=== PATIENT | male | born 1955 | race Two or more races ===

== ENCOUNTER 2017-05-28 14:47 | Inpatient (IN) | payer BC, OTHER ==
[2017-05-27 20:57] VITALS: BP 120/86
[~2017-05-28] VITALS: Ht 152.4 cm; Wt 96.6 kg
[2017-05-28 15:28] LABS: Urine Bilirubin Negative (Negative); Urine Blood Negative /uL (Negative); Urine Color Yellow (Yellow); Urine Glucose Normal (Normal); Urine Ketone 1+ (Negative); Urine Mucus FEW (None Seen); Urine Nitrite Negative (Negative); Urine RBC 1 /hpf (0 - 3); Urine Urobilinogen Normal (Negative); Urine pH 5.5 (5.0-8.0)
[2017-05-28 15:51] LABS: Basophils # (auto) 0 uL; Basophils % (auto) 0.1 % (0.0-2.0); Eosinophils # (auto) 0 uL; Hematocrit 50.8 % (41.0-53.0); Hemoglobin 17.2 g/dL (13.5-17.5); Lymphocytes # (auto) 0.8 uL; Lymphocytes % (auto) 7.9 % (10.0-50.0); Mean Corpuscular Hemoglobin 32.9 pg (28.0-32.0); Mean Corpuscular Hgb Conc. 33.9 g/dL (32.0-36.0); Mean Corpuscular Volume 96.9 fL (80.0-100.0); Mean Platelet Volume 7.6 fL (6.9-10.8); Monocytes # (auto) 0.9 uL; Monocytes % (auto) 8.3 % (0.0-12.0); Neutrophils # (auto) 8.7 uL; Neutrophils % (auto) 83.7 % (37.0-80.0); Platelet Count (auto) 206 10^3/uL (140-450); Red Cell Distribution Width 14.5 % (11.8-14.3); White Blood Cell 10.5 10^3/uL (4.4-10.8)
[2017-05-28 16:09] LABS: Albumin 4.2 g/dL (3.4-5.0); Alkaline Phosphatase 62 U/L (45-117); Anion Gap 6 (5-15); Aspartate Aminotransferase 23 U/L (15-37); BUN/Creatinine Ratio 12.7; Bilirubin, Total 0.8 mg/dL (0.2-1.0); Blood Urea Nitrogen 21 mg/dL (7-18); Calcium 9.1 mg/dL (8.5-10.1); Carbon Dioxide 29 mmol/L (21-32); Chloride 105 mmol/L (98-107); GFR African American 55 mL/min; GFR Non-African American 45 mL/min; Glucose 202 mg/dL (74-106); Magnesium 2.5 mg/dL (1.6-2.6); Potassium 5.3 mmol/L (3.5-5.1); Sodium 140 mmol/L (136-145); Total Protein 7.8 g/dL (6.4-8.2)
[2017-05-28] MEDS ORDERED: METOCLOPRAMIDE HCL 5MG/ml INJ 2ml VIAL IV ONE (17:15)
[2017-05-28] MEDS ORDERED: KETOROLAC TROMETH 30 MG/ML 1ML VIAL IV ONE (17:15)
[2017-05-28] MEDS ORDERED: TAMSULOSIN HYDROCHLORIDE 0.4 MG CAP PO ONE (17:15)
[2017-05-28] MEDS ORDERED: DEXTROSE (50%) 50ML SYRG IV PRN (19:00)
[2017-05-28] MEDS ORDERED: cefTRIAXone 1GM/50ML D5W 50 ML IV ONE (19:00)
[2017-05-28] MEDS ORDERED: NITROGLYCERIN 0.4 MG SL TAB SL PRN (19:00)
[2017-05-28] MEDS ORDERED: PROMETHAZINE HCL 25 MG/ML 1ML IV PRN (19:00)
[2017-05-28] MEDS ORDERED: TEMAZEPAM 15 MG CAP PO PRN (19:00)
[2017-05-28] MEDS ORDERED: SODIUM POLYSTYRENE SULF 15GM/60ML SUSP PO ONE (19:00)
[2017-05-28] MEDS ORDERED: ACETAMINOPHEN 500 MG TAB PO PRN (19:00)
[2017-05-28] MEDS ORDERED: LORazepam 0.5 MG TAB PO PRN (19:00)
[2017-05-28] MEDS ORDERED: MORPHINE SULF INJ 2 MG/ML SYRINGE 1ML IV PRN ×2 (19:00)
[2017-05-28 19:32] LABS: INR 1.04 (0.9-1.15); Partial Thromboplastin Time 26.8 sec (22.64-33.71); Prothrombin Time 11.3 sec (9.37-12.3)
[2017-05-28] MEDS: SODIUM CHLORIDE 0.9% 1,000 ML IV SCH (20:02)
[2017-05-28] MEDS: FAMOTIDINE (10MG/ML) 2ML VL IV SCH (20:05)
[2017-05-28 20:57] VITALS: BP 120/96
[2017-05-28] MEDS: ACCU-CHEK COMFORT CURVE STRIP VI SCH (22:31)
[2017-05-28] MEDS: InsuLIN REG 1unit/0.01ml Soln (100units/ml) SC SCH (22:31)
[2017-05-28] MEDS: HYDROcodone-ACET 5/325MG TAB PO PRN (22:33)
[2017-05-29 04:40] VITALS: BP 110/56
[2017-05-29] MEDS: SODIUM CHLORIDE 0.9% 1,000 ML IV SCH ×2 (04:40→14:51)
[2017-05-29 06:10] LABS: Basophils # (auto) 0 uL; Basophils % (auto) 0.2 % (0.0-2.0); Eosinophils # (auto) 0 uL; Eosinophils % (auto) 0.2 % (0.0-7.0); Hematocrit 43.7 % (41.0-53.0); Lymphocytes # (auto) 1.8 uL; Lymphocytes % (auto) 20.8 % (10.0-50.0); Mean Corpuscular Hgb Conc. 34.3 g/dL (32.0-36.0); Mean Corpuscular Volume 96.1 fL (80.0-100.0); Monocytes # (auto) 1.1 uL; Monocytes % (auto) 13.2 % (0.0-12.0); Neutrophils # (auto) 5.6 uL; Neutrophils % (auto) 65.6 % (37.0-80.0); Nucleated Red Blood Cells % 0.1 %; Platelet Count (auto) 175 10^3/uL (140-450); Red Cell Distribution Width 14.5 % (11.8-14.3); White Blood Cell 8.6 10^3/uL (4.4-10.8)
[2017-05-29] MEDS: ACCU-CHEK COMFORT CURVE STRIP VI SCH ×4 (06:24→21:44)
[2017-05-29] MEDS: InsuLIN REG 1unit/0.01ml Soln (100units/ml) SC SCH ×4 (06:25→22:00)
[2017-05-29 06:45] LABS: Albumin 3.2 g/dL (3.4-5.0); BUN/Creatinine Ratio 12.6; Bilirubin, Total 0.7 mg/dL (0.2-1.0); Calcium 7.9 mg/dL (8.5-10.1); Potassium 3.5 mmol/L (3.5-5.1); Total Protein 6.1 g/dL (6.4-8.2)
[2017-05-29] MEDS: FAMOTIDINE (10MG/ML) 2ML VL IV SCH ×2 (08:48→19:49)
[2017-05-29] MEDS: cefTRIAXone 1GM/50ML D5W 50 ML IV SCH (08:49)
[2017-05-29 09:00] VITALS: BP 140/61
[2017-05-29] MEDS ORDERED: LISI-646 PO (12:07)
[2017-05-29] MEDS ORDERED: ATOR20TA50 PO (12:07)
[2017-05-29] MEDS ORDERED: COLC0.6T56 PO (12:07)
[2017-05-29 13:00] VITALS: BP 134/77
[2017-05-29 17:00] VITALS: BP 143/84
[2017-05-29] MEDS: TAMSULOSIN HYDROCHLORIDE 0.4 MG CAP PO SCH (17:32)
[2017-05-29] MEDS: HYDROcodone-ACET 5/325MG TAB PO PRN (19:49)
[2017-05-29 22:00] VITALS: BP 136/83
[2017-05-30] MEDS: SODIUM CHLORIDE 0.9% 1,000 ML IV SCH ×3 (01:16→21:58)
[2017-05-30 05:00] VITALS: BP 159/85
[2017-05-30] MEDS: ACCU-CHEK COMFORT CURVE STRIP VI SCH ×4 (06:09→21:59)
[2017-05-30] MEDS: InsuLIN REG 1unit/0.01ml Soln (100units/ml) SC SCH ×4 (06:14→21:59)
[2017-05-30] MEDS: HYDROcodone-ACET 5/325MG TAB PO PRN ×3 (06:15→20:16)
[2017-05-30 06:38] LABS: Potassium 3.7 mmol/L (3.5-5.1)
[2017-05-30 06:49] LABS: BUN/Creatinine Ratio 10.7; Calcium 7.7 mg/dL (8.5-10.1)
[2017-05-30] MEDS: FAMOTIDINE (10MG/ML) 2ML VL IV SCH ×2 (08:44→20:16)
[2017-05-30] MEDS: cefTRIAXone 1GM/50ML D5W 50 ML IV SCH (08:45)
[2017-05-30 09:00] VITALS: BP 133/97
[2017-05-30 13:00] VITALS: BP_SYST 129; BP_SYST 132; BP_DIAS 72; BP_DIAS 75
[2017-05-30 17:00] VITALS: BP 151/95
[2017-05-30] MEDS: TAMSULOSIN HYDROCHLORIDE 0.4 MG CAP PO SCH (17:50)
[2017-05-30 21:35] VITALS: BP 154/87
[2017-05-31] VITALS (7 sets, daily range): BP systolic 113–159; BP diastolic 68–96
[2017-05-31] MEDS: SODIUM CHLORIDE 0.9% 1,000 ML IV SCH ×2 (06:47→16:51)
[2017-05-31] MEDS: InsuLIN REG 1unit/0.01ml Soln (100units/ml) SC SCH ×3 (07:00→16:52)
[2017-05-31] MEDS: ACCU-CHEK COMFORT CURVE STRIP VI SCH ×3 (07:01→16:51)
[2017-05-31 07:14] LABS: Calcium 7.9 mg/dL (8.5-10.1); Potassium 3.9 mmol/L (3.5-5.1)
[2017-05-31] MEDS: FAMOTIDINE (10MG/ML) 2ML VL IV SCH (08:05)
[2017-05-31] MEDS: cefTRIAXone 1GM/50ML D5W 50 ML IV SCH (08:05)
[2017-05-31] MEDS: TAMSULOSIN HYDROCHLORIDE 0.4 MG CAP PO SCH (18:35)
[2017-06-01] MEDS ORDERED: LISINOPRIL 20 MG TAB PO SCH (10:00)
== END 2017-05-31 18:35 | disposition home or self-care (01) | DRG 689 ==
LOC: ER 14:47 → OVERFLOW 14:48 → WEST WING 20:57
PROVIDERS: ADMIT Internal Medicine; ATTEND Internal Medicine
DX: N39.0 Urinary tract infection, site not specified (principal); N17.0 Acute kidney failure with tubular necrosis; E87.1 Hypo-osmolality and hyponatremia; Z68.41 Body mass index [BMI] 40.0-44.9, adult; E44.1 Mild protein-calorie malnutrition; E11.21 Type 2 diabetes mellitus with diabetic nephropathy; K76.0 Fatty (change of) liver, not elsewhere classified; N13.2 Hydronephrosis with renal and ureteral calculous obstruction; E87.5 Hyperkalemia; E78.5 Hyperlipidemia, unspecified; I12.9 Hypertensive chronic kidney disease with stage 1 through stage 4 chronic kidney disease, or unspecified chronic kidney disease; N18.2 Chronic kidney disease, stage 2 (mild); Z87.442 Personal history of urinary calculi; I25.2 Old myocardial infarction
CPT/HCPCS: 36415; 71010; 71250; 74176; 80048; 80053; 80061; 81001; 82150; 82962; 83036; 83690; 83735; 84484; 84550; 85025; 85610; 85652; 85730; 86141; 87086; 87088; 87186; 93005; 96365; 96375; J0696; J1815; J1885; J3490

== ENCOUNTER 2017-06-10 10:15 | Day surgery (SDC) | payer BC ==
[2017-06-09 16:41] LABS: Basophils # (auto) 0.1 uL; Eosinophils # (auto) 0.1 uL; Lymphocytes # (auto) 2.1 uL; Mean Platelet Volume 8.1 fL (6.9-10.8); Monocytes # (auto) 0.9 uL; Neutrophils # (auto) 4.7 uL; Red Cell Distribution Width 14.7 % (11.8-14.3)
[2017-06-09 16:43] LABS: Basophils % (auto) 0.7 % (0.0-2.0); Eosinophils % (auto) 0.9 % (0.0-7.0); Hematocrit 51.3 % (41.0-53.0); Hemoglobin 17.8 g/dL (13.5-17.5); Lymphocytes % (auto) 26.5 % (10.0-50.0); Mean Corpuscular Hemoglobin 33.3 pg (28.0-32.0); Mean Corpuscular Hgb Conc. 34.8 g/dL (32.0-36.0); Mean Corpuscular Volume 95.6 fL (80.0-100.0); Monocytes % (auto) 11.4 % (0.0-12.0); Neutrophils % (auto) 60.5 % (37.0-80.0); Nucleated Red Blood Cells % 0.8 %; Platelet Count (auto) 268 10^3/uL (140-450); White Blood Cell 7.8 10^3/uL (4.4-10.8)
[2017-06-09 16:57] LABS: Albumin 3.7 g/dL (3.4-5.0); Calcium 9.2 mg/dL (8.5-10.1); Potassium 4.3 mmol/L (3.5-5.1)
[2017-06-09 17:01] LABS: BUN/Creatinine Ratio 12.8; Bilirubin, Total 0.5 mg/dL (0.2-1.0); Total Protein 7.9 g/dL (6.4-8.2)
[2017-06-09 17:35] LABS: INR 1.01 (0.9-1.15); Partial Thromboplastin Time 30.7 sec (22.64-33.71)
[2017-06-09 23:11] LABS: Urine Bilirubin Negative (Negative); Urine Blood 2+ /uL (Negative); Urine Color Yellow (Yellow); Urine Glucose Normal (Normal); Urine Ketone Negative (Negative); Urine Mucus FEW (None Seen); Urine Nitrite Negative (Negative); Urine RBC 237 /hpf (0 - 3); Urine Urobilinogen Normal (Negative); Urine pH 5.5 (5.0-8.0)
[~2017-06-10] VITALS: Ht 165.1 cm; Wt 90.7 kg
[~2017-06-10 10:15] MED LIST: LISI-646 PO
[2017-06-10] MEDS ORDERED: ceFAZolin 1GM/50ML 50 ML IV ONE (11:41)
[2017-06-10] MEDS ORDERED: MIDAZOLAM HCL 1MG/1ML-2 ML VIAL ONE (17:24)
[2017-06-10] MEDS ORDERED: METOCLOPRAMIDE HCL 5MG/ml INJ 2ml VIAL ONE (17:25)
[2017-06-10] MEDS ORDERED: PROPOFOL 10 MG/ML 20 ML IV ONE ×2 (17:26→17:33)
[2017-06-10] MEDS ORDERED: fentaNYL CITRATE 100 MCG/2 ML VL ONE (17:37)
[2017-06-10] MEDS ORDERED: ONDANSETRON HCL 4 MG/2 ML VIAL ONE (17:39)
[2017-06-10] MEDS ORDERED: MORPHINE SULF INJ 2 MG/ML SYRINGE 1ML IV PRN (18:30)
[2017-06-10] MEDS ORDERED: KETOROLAC TROMETH 30 MG/ML 1ML VIAL IV ONE (18:30)
[2017-06-10] MEDS ORDERED: ONDANSETRON HCL 4 MG/2 ML VIAL IV ONE (18:30)
[2017-06-10 18:47] VITALS: BP 135/94
== END 2017-06-10 19:00 | disposition home or self-care (01) ==
LOC: SUR 10:15
PROVIDERS: ATTEND Urology
DX: N13.2 Hydronephrosis with renal and ureteral calculous obstruction (principal); T83.192A Other mechanical complication of indwelling ureteral stent, initial encounter; N23 Unspecified renal colic; D69.6 Thrombocytopenia, unspecified
CPT/HCPCS: 36415; 52353; 80053; 81001; 85025; 85610; 85730; 87086; J0690; J1885; J2250; J2405; J2704; J2765; J3010; 74000; 76000

== ENCOUNTER 2021-06-01 22:02 | Inpatient (IN) | payer BC, MEDICAID ==
[~2021-06-01] VITALS: Ht 167.6 cm; Wt 99.8 kg
[~2021-06-01 22:02] MED LIST changes: -LISI-646 PO; +LISI20TA28 PO
[2021-06-01] MEDS ORDERED: MORPHINE SULFATE 4 MG/ML SYR/VIAL IV ONE (22:30)
[2021-06-01] MEDS ORDERED: KETOROLAC TROMETH 30 MG/ML 1ML VIAL IV ONE (22:30)
[2021-06-01] MEDS ORDERED: ONDANSETRON HCL 4 MG/2 ML VIAL IV ONE (22:30)
[2021-06-01] MEDS ORDERED: SODIUM CHLORIDE 0.9% 1,000 ML IV ONE (22:30)
[2021-06-01 23:14] LABS: Basophils # (auto) 0 10 ^3/uL (0-0.2); Basophils % (auto) 0.3 % (0.0-2.0); Eosinophils # (auto) 0 10 ^3/uL (0-0.8); Eosinophils % (auto) 0.2 % (0.0-7.0); Hematocrit 47.4 % (41.0-53.0); Hemoglobin 16.2 g/dL (13.5-17.5); Lymphocytes # (auto) 1.6 10 ^3/uL (0.4-5.4); Mean Corpuscular Hemoglobin 32.9 pg (28.0-32.0); Mean Corpuscular Hgb Conc. 34.1 g/dL (32.0-36.0); Mean Corpuscular Volume 96.4 fL (80.0-100.0); Monocytes % (auto) 10.2 % (0.0-12.0); Neutrophils # (auto) 7.1 10 ^3/uL (1.6-8.6); Neutrophils % (auto) 73.3 % (37.0-80.0); Nucleated Red Blood Cells % 0.1 %; Red Blood Cells 4.92 10^6/uL (4.5-5.90); Red Cell Distribution Width 14.6 % (11.8-14.3); White Blood Cell 9.7 10^3/uL (4.4-10.8)
[2021-06-01 23:25] LABS: Albumin 3.5 g/dL (3.4-5.0)
[2021-06-01 23:28] LABS: BUN/Creatinine Ratio 12.1; Bilirubin, Total 0.6 mg/dL (0.2-1.0); Total Protein 7.3 g/dL (6.4-8.2)
[2021-06-01 23:33] LABS: Urine Bacteria NONE SEEN /hpf (None Seen); Urine Blood Negative /uL (Negative); Urine Mucus FEW (None Seen); Urine Specific Gravity 1.023 (1.001-1.035); Urine WBC <1 /hpf (0 - 3)
[2021-06-02] MEDS ORDERED: MORPHINE SULFATE 4 MG/ML SYR/VIAL IV ONE (03:45)
[2021-06-02] MEDS ORDERED: ONDANSETRON HCL 4 MG/2 ML VIAL IV ONE (03:45)
[2021-06-02] MEDS ORDERED: KETOROLAC TROMETH 30 MG/ML 1ML VIAL IV ONE (03:45)
[2021-06-02] MEDS ORDERED: ACETAMINOPHEN 325 MG TAB PO PRN (05:30)
[2021-06-02] MEDS ORDERED: SODIUM CHLORIDE 0.9% 1,000 ML IV SCH (05:30)
[2021-06-02] MEDS ORDERED: HYDROcodone-ACET 5/325MG TAB PO PRN (05:30)
[2021-06-02] MEDS ORDERED: ONDANSETRON HCL 4 MG/2 ML VIAL IV PRN (05:30)
[2021-06-02] MEDS ORDERED: hydrALAZINE HCL 20 MG/ML VL IV PRN (05:30)
[2021-06-02] MEDS ORDERED: DOCUSATE SOD 100 MG CAP PO PRN (05:30)
[2021-06-02] MEDS ORDERED: NITROGLYCERIN 0.4 MG SL TAB SL PRN (06:15)
[2021-06-02] MEDS ORDERED: MORPHINE SULFATE INJECTION 2 MG/ML SYRG IV PRN (06:15)
[2021-06-02 07:32] LABS: Basophils # (auto) 0 10 ^3/uL (0-0.2); Basophils % (auto) 0.3 % (0.0-2.0); Eosinophils # (auto) 0 10 ^3/uL (0-0.8); Eosinophils % (auto) 0.4 % (0.0-7.0); Hematocrit 47.7 % (41.0-53.0); Hemoglobin 16.2 g/dL (13.5-17.5); Mean Corpuscular Hemoglobin 33.2 pg (28.0-32.0); Mean Corpuscular Hgb Conc. 33.9 g/dL (32.0-36.0); Monocytes % (auto) 11.8 % (0.0-12.0); Neutrophils # (auto) 5.4 10 ^3/uL (1.6-8.6); Neutrophils % (auto) 63.5 % (37.0-80.0); Nucleated Red Blood Cells % 0.2 %; Red Blood Cells 4.87 10^6/uL (4.5-5.90); Red Cell Distribution Width 14.6 % (11.8-14.3); White Blood Cell 8.5 10^3/uL (4.4-10.8)
[2021-06-02 07:41] LABS: Albumin 3.6 g/dL (3.4-5.0); Potassium 5.3 mmol/L (3.5-5.1)
[2021-06-02 07:45] LABS: BUN/Creatinine Ratio 11.3; Bilirubin, Total 0.8 mg/dL (0.2-1.0)
[2021-06-02 09:00] VITALS: BP 160/94
[2021-06-02] MEDS ORDERED: INFLUENZA QUAD 2021-2022 0.5 ML SYRG IM ONE (09:00)
[2021-06-02] MEDS ORDERED: ALLO300T2 PO (09:13)
[2021-06-02] MEDS ORDERED: LOSA-39 PO (09:13)
[2021-06-02] MEDS ORDERED: COLC1CAP PO (09:13)
[2021-06-02] MEDS ORDERED: METF500S PO (09:13)
[2021-06-02] MEDS ORDERED: HEPARIN SODIUM (PORCINE) 5000 UNITS/ML 1ML VIAL SC SCH (10:00)
[2021-06-02] MEDS: FAMOTIDINE (10MG/ML) 2ML VL IV SCH (10:41)
[2021-06-02] MEDS: amLODIPine BESYLATE 5 MG TAB PO SCH (10:42)
[2021-06-02] MEDS: MORPHINE SULFATE 4 MG/ML SYR/VIAL IV PRN (10:44)
[2021-06-02] MEDS ORDERED: MANNITOL 20% SOLN 100 gm/500ml 100 ML IV ONE (11:45)
[2021-06-02] MEDS ORDERED: TAMSULOSIN HYDROCHLORIDE 0.4 MG CAP PO ONE (11:45)
[2021-06-02] MEDS ORDERED: cloNIDine HCL 0.1 MG TAB PO PRN (12:00)
[2021-06-02] MEDS: SODIUM CHLORIDE 0.9% 1,000 ML IV SCH ×2 (12:06→18:35)
[2021-06-02] MEDS ORDERED: DEXTROSE (50%) 50ML SYRG IV PRN (12:30)
[2021-06-02 13:00] VITALS: BP 139/76
[2021-06-02] MEDS: InsuLIN REG 1unit/0.01ml Soln (100units/ml) SC SCH ×2 (16:38→21:19)
[2021-06-02] MEDS: ACCU-CHEK COMFORT CURVE STRIP VI SCH ×2 (16:38→21:18)
[2021-06-02 16:47] VITALS: BP 115/65
[2021-06-02 20:00] VITALS: BP 107/59
[2021-06-02] MEDS: COLCHICINE 0.6 MG CAP PO SCH (21:17)
[2021-06-02 22:00] VITALS: BP 107/59
[2021-06-03] MEDS: MORPHINE SULFATE 4 MG/ML SYR/VIAL IV PRN (00:04)
[2021-06-03] MEDS: SODIUM CHLORIDE 0.9% 1,000 ML IV SCH ×3 (00:10→17:10)
[2021-06-03 05:00] VITALS: BP 121/80
[2021-06-03] MEDS: InsuLIN REG 1unit/0.01ml Soln (100units/ml) SC SCH ×4 (06:10→21:31)
[2021-06-03] MEDS: ACCU-CHEK COMFORT CURVE STRIP VI SCH ×4 (06:12→21:31)
[2021-06-03 06:33] LABS: Basophils # (auto) 0 10 ^3/uL (0-0.2); Basophils % (auto) 0.4 % (0.0-2.0); Eosinophils # (auto) 0 10 ^3/uL (0-0.8); Eosinophils % (auto) 0.5 % (0.0-7.0); Hematocrit 41.2 % (41.0-53.0); Hemoglobin 14.2 g/dL (13.5-17.5); Lymphocytes # (auto) 1.3 10 ^3/uL (0.4-5.4); Lymphocytes % (auto) 19.9 % (10.0-50.0); Mean Corpuscular Hemoglobin 33.3 pg (28.0-32.0); Mean Corpuscular Hgb Conc. 34.4 g/dL (32.0-36.0); Mean Corpuscular Volume 96.8 fL (80.0-100.0); Monocytes # (auto) 0.9 10 ^3/uL (0-1.3); Monocytes % (auto) 14.1 % (0.0-12.0); Neutrophils # (auto) 4.2 10 ^3/uL (1.6-8.6); Neutrophils % (auto) 65.1 % (37.0-80.0); Red Blood Cells 4.26 10^6/uL (4.5-5.90); Red Cell Distribution Width 14.6 % (11.8-14.3); White Blood Cell 6.5 10^3/uL (4.4-10.8)
[2021-06-03 06:47] LABS: Albumin 2.8 g/dL (3.4-5.0); Potassium 4.4 mmol/L (3.5-5.1)
[2021-06-03 06:52] LABS: BUN/Creatinine Ratio 12.9; Bilirubin, Total 0.6 mg/dL (0.2-1.0); Total Protein 5.9 g/dL (6.4-8.2)
[2021-06-03 09:23] VITALS: BP 137/88
[2021-06-03] MEDS: amLODIPine BESYLATE 5 MG TAB PO SCH (09:47)
[2021-06-03] MEDS: COLCHICINE 0.6 MG CAP PO SCH ×2 (09:47→21:30)
[2021-06-03] MEDS: LOSARTAN POTASSIUM 50 MG TAB PO SCH (09:47)
[2021-06-03] MEDS: FAMOTIDINE (10MG/ML) 2ML VL IV SCH (09:47)
[2021-06-03] MEDS: ALLOPURINOL 300 MG TAB PO SCH (09:47)
[2021-06-03 12:59] VITALS: BP 127/64
[2021-06-03 16:39] VITALS: BP 141/86
[2021-06-03] MEDS ORDERED: TAMSULOSIN HYDROCHLORIDE 0.4 MG CAP PO SCH (18:00)
[2021-06-03 22:00] VITALS: BP 135/85
[2021-06-04] MEDS: SODIUM CHLORIDE 0.9% 1,000 ML IV SCH ×2 (03:35→04:00)
[2021-06-04 05:00] VITALS: BP 145/87
[2021-06-04] MEDS: InsuLIN REG 1unit/0.01ml Soln (100units/ml) SC SCH ×2 (06:04→11:46)
[2021-06-04] MEDS: ACCU-CHEK COMFORT CURVE STRIP VI SCH ×2 (06:04→11:46)
[2021-06-04 09:00] VITALS: BP 147/76
[2021-06-04] MEDS: FAMOTIDINE (10MG/ML) 2ML VL IV SCH (10:00)
[2021-06-04] MEDS: COLCHICINE 0.6 MG CAP PO SCH (10:00)
[2021-06-04] MEDS: amLODIPine BESYLATE 5 MG TAB PO SCH (10:01)
[2021-06-04] MEDS: LOSARTAN POTASSIUM 50 MG TAB PO SCH (10:01)
[2021-06-04] MEDS: ALLOPURINOL 300 MG TAB PO SCH (10:01)
[2021-06-04 13:00] VITALS: BP 162/90
== END 2021-06-04 14:30 | disposition home or self-care (01) | DRG 465 ==
LOC: ER 22:02 → OVERFLOW 06-02 06:16 → CENTRAL 06-02 08:47
PROVIDERS: ADMIT Nurse Practitioner Family; ATTEND Family Medicine
DX: N13.2 Hydronephrosis with renal and ureteral calculous obstruction (principal); N17.9 Acute kidney failure, unspecified; E11.65 Type 2 diabetes mellitus with hyperglycemia; I10 Essential (primary) hypertension; E78.00 Pure hypercholesterolemia, unspecified; E78.5 Hyperlipidemia, unspecified; M10.9 Gout, unspecified; R79.89 Other specified abnormal findings of blood chemistry; E66.01 Morbid (severe) obesity due to excess calories; Z20.822 Contact with and (suspected) exposure to COVID-19; Z68.35 Body mass index [BMI] 35.0-35.9, adult; Z82.5 Family history of asthma and other chronic lower respiratory diseases; Z87.442 Personal history of urinary calculi
CPT/HCPCS: 36415; 74018; 74176; 80053; 81001; 82962; 83036; 83690; 84484; 85025; 87426; 96361; 96374; 96375; 96376; G0378; J1815; J1885; J2405; J3490